=== PATIENT | male | born 1995 | race Caucasian/White ===

== ENCOUNTER 2018-06-22 12:38 | Emergency (ER) | payer BC ==
[~2018-06-22] VITALS: Ht 175.3 cm; Wt 77.1 kg
--- NOTE | 2018-06-22 12:58 | PHYS DOC ---
Adult General Chief Complaint Chief Complaint: Congestion HPI HPI Patient is a 23 year old male with no significant medical history who presents today complaining of cough and wheezing and nasal congestion for 4 days. Patient states his boss called him this morning and noted he was wheezing and called 911 on his behalf. Patient denies any fever. He states he was given a breathing treatment in route and felt slightly better. Denies any chest pain. Review of Systems Review of Systems Constitutional: Denies fever or chills [] Eyes: Denies change in visual acuity, redness, or eye pain [] HENT: Post nasal congestion, denies any sore throat [] Respiratory: Reports cough, denies shortness of breath [] Cardiovascular: No additional information not addressed in HPI [] GI: Denies abdominal pain, nausea, vomiting, bloody stools or diarrhea [] : Denies dysuria or hematuria [] Musculoskeletal: Denies back pain or joint pain [] Integument: Denies rash or skin lesions [] Neurologic: Denies headache, focal weakness or sensory changes [] All other systems were reviewed and found to be within normal limits, except as documented in this note. Current Medications Current Medications Current Medications Medications (Trade) Dose Ordered Sig/Maureen Start Time Stop Time Status Last Admin Dose Admin Albuterol/ Ipratropium (Duoneb) 3 ml 1X ONCE 06/22/18 13:00 06/22/18 13:01 DC 06/22/18 13:07 3 ML Prednisone (Prednisone) 50 mg 1X ONCE 06/22/18 13:00 06/22/18 13:01 DC 06/22/18 13:15 50 MG Allergies Allergies Allergies Coded Allergies Type Severity Reaction Last Updated Verified No Known Drug Allergies 06/22/18 No Physical Exam Physical Exam Constitutional: Well developed, well nourished, no acute distress, non-toxic appearance. [] HENT: Normocephalic, atraumatic, bilateral external ears normal, oropharynx moist, no oral exudates, nose normal. [] Eyes: PERRLA, EOMI, conjunctiva normal, no discharge. [] Neck: Normal range of motion, no tenderness, supple, no stridor. [] Cardiovascular:Heart rate regular rhythm, no murmur [] Lungs & Thorax: Slight wheezing to posterior upper lung bases Abdomen: Bowel sounds normal, soft, no tenderness, no masses, no pulsatile masses. [] Skin: Warm, dry, no erythema, no rash. [] Back: No tenderness, no CVA tenderness. [] Extremities: No tenderness, no cyanosis, no clubbing, ROM intact, no edema. [] Neurologic: Alert and oriented X 3, normal motor function, normal sensory function, no focal deficits noted. [] Psychologic: Affect normal, judgement normal, mood normal. [] Current Patient Data Vital Signs Vital Signs Date Time Temp Pulse Resp B/P (MAP) Pulse Ox O2 Delivery O2 Flow Rate FiO2 06/22/18 14:01 81 16 122/81 (95) 100 Room Air 06/22/18 12:48 96.8 96.8 EKG EKG [] Radiology/Procedures Radiology/Procedures []PROCEDURE: CHEST PA & LATERAL Chest PA and lateral 06/22/2018. Reason for exam: Coughing and wheezing for 4 days. No infiltrate or effusion is seen. Heart size and pulmonary vascularity appear normal. IMPRESSION: No acute disease. Electronically signed by: Debra Yuen Jr., MD (06/22/2018 1:42 PM) [facility] [place] SIGNED BY: DEBRA YUEN Jr, MD DATE: 06/22/18 1341 Course & Med Decision Making Course & Med Decision Making Pertinent Labs and Imaging studies reviewed. (See chart for details) This is a 23-year-old male patient presenting to the ED today with cough with nasal congestion for 4 days. Vitals on March to the ED temperature 96.8 heart rate 91 and O2 sats 95% on room air respiration 20 blood pressure 116/67. Patient was offered a warm blanket he declined, encouraged him to wear his jacket, he declined he states he is not feeling cold. Chest x-ray interpreted by radiologist is negative for any findings, patient was given a DuoNeb treatment and prednisone. Feeling better. To be discharged with albuterol inhaler, prednisone and Tessalon Perles. Symptoms are likely viral. Follow-up with PCP in 1-2 weeks. Staff Physician Addendum: I was working in the ER during the course of this patient's visit. I was available for consultation as needed, but I was not directly involved in the care of this patient. Dragon Disclaimer Dragon Disclaimer This electronic medical record was generated, in whole or in part, using a voice recognition dictation system. Departure Departure Impression: Primary Impression: URI (upper respiratory infection) Additional Impression: Bronchitis, acute Disposition: 01 HOME, SELF-CARE Condition: STABLE Patient Instructions: Acute Bronchitis, Upper Respiratory Infection, Adult, [id number] Additional Instructions: You were seen in the ER and noted to have symptoms consistent with acute bronchitis and an upper respiratory infection, take the prescribed patient's also had a. Follow-up with your doctor in 1-2 weeks. Scripts Prednisone (PREDNISONE) 50 Mg Tablet 1 TAB PO DAILY, #4 TAB Prov: RACIEL OLMOS APRN 06/22/18 Albuterol Sulfate (VENTOLIN HFA INHALER) 18 Gm Hfa.aer.ad 2 PUFF INH Q4HRS for FOR ASTHMA, #1 INHALER 0 Refills Prov: RACIEL OLMOS APRN 06/22/18 Benzonatate (TESSALON PERLE) 100 Mg Capsule 1 CAP PO TID, #30 CAP Prov: RACIEL OLMOS APRN 06/22/18 Problem Qualifiers Primary Impression: URI (upper respiratory infection) URI type: unspecified URI Qualified Codes: J06.9 - Acute upper respiratory infection, unspecified Additional Impression: Bronchitis, acute Bronchitis organism: unspecified organism Qualified Codes: J20.9 - Acute bronchitis, unspecified RACIEL OLMOS APRN Jun 22, 2018 12:58 CLOVIS BENAVIDES MD Jun 22, 2018 17:42
[2018-06-22] MEDS ORDERED: IPRATRPIUM/ALBUTEROL 0.5/2.5MG 3 ML NEBU. NEB ONE (13:00)
[2018-06-22] MEDS ORDERED: predniSONE 10 MG TABLET PO ONE (13:00)
--- NOTE | 2018-06-22 13:46 | RAD ---
Chest PA and lateral 06/22/2018. Reason for exam: Coughing and wheezing for 4 days. No infiltrate or effusion is seen. Heart size and pulmonary vascularity appear normal. IMPRESSION: No acute disease. Electronically signed by: Adebayo Rico Jr., MD (06/22/2018 1:42 PM) [facility] [place]
[2018-06-22] MEDS ORDERED: PRED50TA PO (13:55)
[2018-06-22] MEDS ORDERED: VENTOLIN HFA18 GM INH (13:55)
[2018-06-22] MEDS ORDERED: BENZ100C PO (13:55)
[2018-06-22 14:01] VITALS: BP 122/81
== END 2018-06-22 14:02 | disposition home or self-care (01) ==
LOC: ER 12:38
DX: J06.9 Acute upper respiratory infection, unspecified (principal); J20.9 Acute bronchitis, unspecified
CPT/HCPCS: 71046; 94640; 99283; J7512; J7620

== ENCOUNTER 2020-05-25 12:32 | Emergency (ER) | payer BC ==
[~2020-05-25] VITALS: Ht 175.3 cm; Wt 66.0 kg
[~2020-05-25 12:32] MED LIST: BENZ100C PO; PRED50TA PO; VENTOLIN HFA18 GM INH
[2020-05-25] MEDS ORDERED: DEXAMETHASONE 4 MG TABLET PO ONE (15:45)
--- NOTE | 2020-05-25 15:52 | PHYS DOC ---
Past Medical History Past Medical History: No Pertinent History (SHERI ANNA ROTOGRAVURE PRESS OPERATOR) Past Surgical History: Other Additional Past Surgical Histo: PYLORIC STENOSIS (SHERI ANNA ROTOGRAVURE PRESS OPERATOR) Smoking Status: Current Every Day Smoker Alcohol Use: None Drug Use: None (SHERI ANNA APRN) General Adult EDM: Chief Complaint: SORE THROAT HPI: HPI: Patient is a 25 year old male who presents with right ear pain and then progressed into throat pain for the last 5 days. Patient states he has been taking DayQuil and NyQuil without relief. He rates his pain 8 out of 10. He states it hurts to eat and drink. He denies abdominal pain, fever, vomiting, chest pain, shortness of air, cough, cough, nasal congestion, shortness of air, nausea headache, dizziness, vision changes, numbness or tingling. (SHERI ANNA ROTOGRAVURE PRESS OPERATOR) Review of Systems: Review of Systems: Constitutional: Denies fever or chills. [] Eyes: Denies change in visual acuity. [] HENT: Denies nasal congestion or +sore throat. + Right ear pain [] Respiratory: Denies cough or shortness of breath. [] Cardiovascular: Denies chest pain or edema. [] GI: Denies abdominal pain, nausea, vomiting, bloody stools or diarrhea. [] : Denies dysuria. [] Musculoskeletal: Denies back pain or joint pain. [] Integument: Denies rash. [] Neurologic: Denies headache, focal weakness or sensory changes. [] Endocrine: Denies polyuria or polydipsia. [] Lymphatic: Denies swollen glands. [] Psychiatric: Denies depression or anxiety. [] (SHERI ANNA ROTOGRAVURE PRESS OPERATOR) Heart Score: Risk Factors: Risk Factors: DM, Current or recent (<one month) smoker, HTN, HLP, family history of CAD, obesity. Risk Scores: Score 0 - 3: 2.5% MACE over next 6 weeks - Discharge Home Score 4 - 6: 20.3% MACE over next 6 weeks - Admit for Clinical Observation Score 7 - 10: 72.7% MACE over next 6 weeks - Early Invasive Strategies (SHERI ANNA ROTOGRAVURE PRESS OPERATOR) Allergies: Allergies: Allergies Coded Allergies Type Severity Reaction Last Updated Verified No Known Drug Allergies 06/22/18 No (SHERI ANNA APRN) Physical Exam: PE: Constitutional: Well developed, well nourished, no acute distress, non-toxic appearance. [] HENT: Normocephalic, atraumatic, bilateral external ears normal, oropharynx moist, no oral exudates, nose normal. Tonsils 1, 2+ swelling and exudates. Right ear tympanic pink. [] Eyes: PERRLA, EOMI, conjunctiva normal, no discharge. [] Neck: Normal range of motion, no tenderness, supple, no stridor. [] Cardiovascular:Heart rate regular rhythm, no murmur [] Lungs & Thorax: Bilateral breath sounds clear to auscultation [] Abdomen: Bowel sounds normal, soft, no tenderness, no masses, no pulsatile masses. [] Skin: Warm, dry, no erythema, no rash. [] Back: No tenderness, no CVA tenderness. [] Extremities: No tenderness, no cyanosis, no clubbing, ROM intact, no edema. [] Neurologic: Alert and oriented X 3, normal motor function, normal sensory function, no focal deficits noted. [] Psychologic: Affect normal, judgement normal, mood normal. [] (SHERI ANNA APRN) EKG: EKG: [] (SHERI ANNA APRN) Radiology/Procedures: Radiology/Procedures: [] (SHERI ANNA APRN) Course & Med Decision Making: Course & Med Decision Making Pertinent Labs and Imaging studies reviewed. (See chart for details) See HPI. Throat is reddened with exudates and 2+ swelling of tonsils. No trismus. Uvula midline. Speaks in full clear sentences. Ambulatory with a steady gait. Skin pink warm and dry. Alert and oriented x4. Abdomen is soft and nontender. Rapid strep is negative. Patient is given a dose of dexamethaso ne in the ED. He will be sent home with amoxicillin and dexamethasone Medrol pack. [] (SHERI ANNA APRN) Dragon Disclaimer: Dragon Disclaimer: This electronic medical record was generated, in whole or in part, using a voice recognition dictation system. (SHERI ANNA APRN) Departure Departure Impression: Primary Impression: Sore throat Additional Impression: Otitis media Qualified Codes: H66.001 - Acute suppurative otitis media without spontaneous rupture of ear drum, right ear Disposition: 01 DC HOME SELF CARE/HOMELESS Condition: STABLE Referrals: NO PCP (PCP) Patient Instructions: Otitis Media, Adult, Sore Throat, [id number] Additional Instructions: Drink plenty of fluids. Take medication as prescribed and with some food. Take ibuprofen for your pain or Tylenol. Gargle with salt water if possible to help your throat. If you begin having severe shortness of breath or you cannot keep food down return to the emergency room. Scripts Methylprednisolone (MEDROL) 4 Mg Tab.ds.pk 1 PKG PO UD, #1 PKG Prov: SHERI ANNA APRN 05/25/20 Ibuprofen (IBUPROFEN) 600 Mg Tablet 600 MG PO PRN Q6HRS PRN for INFLAMMATION, #20 TAB Prov: SHERI ANNA APRN 05/25/20 Amoxicillin (AMOXICILLIN) 500 Mg Capsule 1 CAP PO BID, #20 CAP Prov: SHERI ANNA ROTOGRAVURE PRESS OPERATOR 05/25/20 Attending Signature Attending Signature I have reviewed the PA/INFECTION PREVENTION SPECIALIST's note and plan of care. I was available for consulta tion as needed during the patient's visit in the emergency department. I agree with the clinical impression, plan, and disposition. (LISANDRA DOWELL DO) SHERI ANNA APRN May 25, 2020 15:52 LISANDRA DOWELL DO May 25, 2020 18:55
[2020-05-25] MEDS ORDERED: IBUP-1007 PO (16:47)
[2020-05-25] MEDS ORDERED: AMOX500C PO (16:47)
[2020-05-25] MEDS ORDERED: METH4TAB2 PO (16:47)
[2020-05-25 17:10] VITALS: BP 121/67
== END 2020-05-25 17:21 | disposition home or self-care (01) ==
LOC: ER 12:32
DX: H66.001 Acute suppurative otitis media without spontaneous rupture of ear drum, right ear (principal); J02.9 Acute pharyngitis, unspecified; F17.200 Nicotine dependence, unspecified, uncomplicated
CPT/HCPCS: 87070; 87880; 99283

== ENCOUNTER 2021-02-08 16:19 | Emergency (ER) | payer SELFPAY ==
[~2021-02-08] VITALS: Ht 175.3 cm; Wt 78.2 kg
[~2021-02-08 16:19] MED LIST changes: +AMOX500C PO; +IBUP-1007 PO; +METH4TAB2 PO
--- NOTE | 2021-02-08 17:13 | PHYS DOC ---
Past Medical History Past Medical History: Asthma Additional Past Medical Histor: legally blind (CLOVIS VYAS DO) Past Surgical History: Other Additional Past Surgical Histo: PYLORIC STENOSIS, rt hand fracture repair (CLOVIS VYAS DO) Smoking Status: Current Every Day Smoker Alcohol Use: None Drug Use: None (CLOVIS VYAS DO) General Adult EDM: Chief Complaint: SORE THROAT HPI: HPI: 25-year-old male presents to the emergency department complaining of sore throat, difficulty speaking due to the sore throat for the past several days it has been gradually progressive and got worse today. He reports trouble swallowing, trouble speaking. He reports similar symptoms in the past when he had a peritonsillar abscess. He admits that his voice is changed slightly since his symptoms have started. (CLOVIS VYAS DO) Review of Systems: Review of Systems: Constitutional: Denies fever or chills. Eyes: Denies change in vision, pain. HENT: Admits to sore throat, denies congestion. Respiratory: Denies cough or shortness of breath. Cardiovascular: Denies chest pain or edema. GI: Denies abdominal pain, nausea. : Denies change in urination, dysuria. Musculoskeletal: Denies extremity pain, or trauma. Skin: Denies rash, skin change. Neurologic: Denies headache, focal weakness. Psychiatric: Denies depression or anxiety. All other systems reviewed as negative except for what was mentioned in the HPI. (CLOVIS VYAS DO) Heart Score: C/O Chest Pain: No (CLOVIS VYAS DO) C/O Chest Pain: N/A (CHRISTIANO LEE DO) Current Medications: Current Medications Medications (Trade) Dose Ordered Sig/Maureen Start Time Stop Time Status Last Admin Dose Admin Ampicillin Sodium/ Sulbactam Sodium 3 gm/Sodium Chloride 100 ml @ 200 mls/hr 1X ONCE 02/08/21 17:15 02/08/21 17:44 Dexamethasone Sodium Phosphate (Decadron) 10 mg 1X ONCE 02/08/21 17:15 02/08/21 17:16 Morphine Sulfate (Morphine Sulfate) 5 mg 1X ONCE 02/08/21 17:15 02/08/21 17:16 (CLOVIS VYAS DO) Allergies: Allergies: Allergies Coded Allergies Type Severity Reaction Last Updated Verified No Known Drug Allergies 02/08/21 No (CLOVIS VYAS DO) Physical Exam: PE: Constitutional: No acute distress, non-toxic appearance. Muffled voice is apparent HENT: Large appearing hyperemic area to the right peritonsillar area, area appears to overlie the tonsil. Uvula shifted to the left. Trismus is noted Eyes: PERRLA, EOMI, conjunctiva normal, no discharge. Neck: Normal range of motion, supple, no stridor. Cardiovascular: Heart rate regular rhythm. 2+ radial pulses Lungs & Thorax: No respiratory distress, symmetrical expansion. Bilateral breath sounds clear to auscultation Skin: Warm, dry. Extremities: No tenderness, no cyanosis, ROM intact, no edema. Neurologic: Alert and oriented X 3, normal motor function, normal sensory function, no focal deficits noted. Non ataxic gait. GCS 15. Psychologic: Affect normal, judgment normal, mood normal. (CLOVIS VYAS DO) Current Patient Data: Vital Signs: Vital Signs Date Time Temp Pulse Resp B/P (MAP) Pulse Ox O2 Delivery O2 Flow Rate FiO2 02/08/21 16:47 98.5 87 20 113/58 (85) 96 Room Air 98.5 (CLOVIS VYAS DO) Radiology/Procedures: Radiology/Procedures: [facility] [address] [place] [address] IMAGING REPORT Signed PATIENT: EAGLE KAUR ACCOUNT: [id number] : 1995 LOCATION: ER AGE: 25 SEX: M EXAM STATUS: REG ER ORD. PHYSICIAN: CLOVIS VYAS DO REASON: large appearing peritonsilar abscess PROCEDURE: CT SOFT TISSUE NECK W/CONTRAST Exam: CT neck with contrast INDICATION: Large appearing peritonsillar abscess TECHNIQUE: Sequential axial images through the neck obtained following the administration of 70 mL of Omni 300 IV contrast. Sagittal and coronal reformatted images were reconstructed from the axial data and reviewed. Exposure: One or more of the following in the visualized dose reduction techniques were utilized for this examination: 1. Automated exposure control 2. Adjustment of the MA and/or KV according to patient size 3. Use of iterative of reconstructive technique Comparisons: None FINDINGS: Visualized intracranial structures are unremarkable. Globes are small bilaterally. Intraorbital contents are otherwise unremarkable. Visualized portions of paranasal sinuses and mastoid air cells are well-pneumatized. There is enlargement of the right palatine tonsil with a 2.5 cm peritonsillar abscess. Mild parapharyngeal edema is also noted. There is mild mass effect on the oropharynx which is effaced laterally. Thyroid and salivary glands are within normal limits. Bilateral mildly enlarged upper cervical lymph nodes noted. Visualized lung apices are clear. No suspicious osseous lesions or acute fractures. IMPRESSION: Findings of tonsillitis at the right palatine tonsil with a 2.5 cm peritonsillar abscess Electronically signed by: Ludwin Maldonado MD (02/08/2021 6:36 PM) [facility] DICTATED and SIGNED BY: LUDWIN MALDONADO MD DATE: 02/08/21 [id number] (CHRISTIANO LEE DO) Course & Med Decision Making: Course & Med Decision Making due to concern for retropharyngeal abscess versus tonsillar involvement, will obtain CT with contrast to differentiate before drainage. He was given Decadron, Unasyn, labs are drawn. Airway is intact at the time of signout patient signed out to Dr. Lee at [address] (CLOVIS VYAS DO) Course & Med Decision Making Patient is a 25-year-old male who was diagnosed with right peritonsillar abscess, there is no ENT service at this hospital. Patient will need to be transferred on a hospital for ENT evaluation. This physician contacted [facility] for transfer, they declined because there is no inpatient bed for patient. This physician contacted [facility], THEY DECLINED DUE TO NO INPATIENT BED. This physician contacted [facility] at 8:20 pm, awaiting to talk with ENT AT 850 PM, DISCUSSED WITH DR. DOMINGUEZ, ENT resident, agreed to see patient at [facility], [place], [place] IF HE IS TRANSFERRED THERE, DR. FRANCO, TRANSFER DOCTOR, ACCEPTED PATIENT FOR TRANSFER THERE. (CHRISTIANO LEE DO) Departure Departure Impression: Primary Impression: Abscess, peritonsillar Disposition: 02 SHORT TERM HOSPITAL (TRANSFERRED TO [facility], [place], [place], ACCEPTED BY DR. FRANCO.) Condition: STABLE Referrals: NO PCP (PCP) CLOVIS VYAS DO Feb 08, 2021 17:13 CHRISTIANO LEE DO Feb 08, 2021 20:02
[2021-02-08] MEDS ORDERED: DEXAMETHASONE SOD PHOS 4 MG/ML VIAL IVP ONE (17:15)
[2021-02-08] MEDS ORDERED: AMPICILLIN/SULBACTAM 3 GM in IV NORMAL SALINE 100ML 100 ML IV ONE (17:15)
[2021-02-08] MEDS ORDERED: MORPHINE SULFATE 10 MG/ML VIAL. IV ONE (17:15)
[2021-02-08 17:26] LABS: BASO # 0.1 x10^3/uL (0.0-0.2); BASO % 0 % (0-3); EOS # 0.4 x10^3/uL (0.0-0.7); EOS % 2 % (0-3); HEMATOCRIT 43.8 % (39.0-53.0); HEMOGLOBIN 15.2 g/dL (13.0-17.5); LYMPH # 2.3 x10^3/uL (1.0-4.8); LYMPH % 10 % (24-48); MEAN CORPUSCULAR HEMOGLOBIN 30 pg (25-35); MEAN CORPUSCULAR HGB CONC 35 g/dL (31-37); MEAN CORPUSCULAR VOLUME 87 fL (79-100); MONO % 9 % (0-9); NEUT # 18.2 x10^3/uL (1.8-7.7); NEUT % 80 % (31-73); PLATELET COUNT 237 x10^3/uL (140-400); RED BLOOD COUNT 5.02 x10^6/uL (4.30-5.70); RED CELL DISTRIBUTION WIDTH 13.2 % (11.5-14.5); WHITE BLOOD COUNT 22.9 x10^3/uL (4.0-11.0)
[2021-02-08 17:38] LABS: CALCIUM 8.8 mg/dL (8.5-10.1); CREATININE 0.8 mg/dL (0.7-1.3); GFR 119.8; POTASSIUM 3.8 mmol/L (3.5-5.1)
[2021-02-08] MEDS ORDERED: IOHEXOL 300 MG/ML 100ML VIAL. IV ONE (17:45)
[2021-02-08] MEDS ORDERED: CONTRAST GIVEN. MC PRN (18:00)
[2021-02-08 18:27] LABS: % BANDS 9 % (0-9); % EOS 2 % (0-5); % LYMPHS 11 % (24-48); % MONOS 10 % (0-10); % SEGS 68 % (35-66)
[2021-02-08 18:28] LABS: PLT ESTIMATE ADEQUATE (ADEQUATE)
--- NOTE | 2021-02-08 18:38 | RAD ---
Exam: CT neck with contrast INDICATION: Large appearing peritonsillar abscess TECHNIQUE: Sequential axial images through the neck obtained following the administration of 70 mL of Omni 300 IV contrast. Sagittal and coronal reformatted images were reconstructed from the axial data and reviewed. Exposure: One or more of the following in the visualized dose reduction techniques were utilized for this examination: 1. Automated exposure control 2. Adjustment of the MA and/or KV according to patient size 3. Use of iterative of reconstructive technique Comparisons: None FINDINGS: Visualized intracranial structures are unremarkable. Globes are small bilaterally. Intraorbital khoi nts are otherwise unremarkable. Visualized portions of paranasal sinuses and mastoid air cells are we ll-pneumatized. There is enlargement of the right palatine tonsil with a 2.5 cm peritonsillar abscess. Mild paraphary ngeal edema is also noted. There is mild mass effect on the oropharynx which is effaced laterally. Thyroid and salivary glands are within normal limits. Bilateral mildly enlarged upper cervical lymph nodes noted. Visualized lung apices are clear. No suspicious osseous lesions or acute fractures. IMPRESSION: Findings of tonsillitis at the right palatine tonsil with a 2.5 cm peritonsillar abscess Electronically signed by: Ludwin Piña MD (02/08/2021 6:36 PM) [facility]
[2021-02-08] MEDS ORDERED: IV NORMAL SALINE 1000ML BAG 1,000 ML IV ONE (18:45)
[2021-02-08 21:14] VITALS: BP 123/71
== END 2021-02-08 21:58 | disposition short-term general hospital (02) ==
LOC: ER 16:19
DX: J36 Peritonsillar abscess (principal); Z20.822 Contact with and (suspected) exposure to COVID-19; J45.909 Unspecified asthma, uncomplicated; F17.200 Nicotine dependence, unspecified, uncomplicated
CPT/HCPCS: 36415; 70491; 80048; 85007; 85025; 87426; 96361; 96365; 96375; 99285; J0295; J1100; J2270; J7030; Q9967; U0003; U0005